=== PATIENT | male | born 1980 | race Caucasian/White ===

== ENCOUNTER → 2018-05-12 | Day surgery (SDC) | payer OTHER ==
[~2018-05-12] MED LIST: BUPIVACAINE 0.25% 30ML SDV INJ ONE; CEFTRIAXONE SOD 1 GM/NS 50 ML 50 ML IV ONE; DEXAMETHASONE SOD PHOS INJ 4 MG/ML VIAL ONE; FENTANYL CITRATE/PF 100MCG/2 ML INJ ONE; FISH OIL PO; KETOROLAC TROMETHAMINE 30 MG/ML VIAL ONE; LIDOCAINE HCL 2% LOCAL INJ 5 ML SDV VIAL INJ ONE; MIDAZOLAM HCL 2 MG/2 ML VIAL ONE; MULTIVITAMINS1 EAC8 PO; ONDANSETRON HCL INJ 2MG/ML 2ML 2 MG/ML VIAL ONE; PROPOFOL IV EMULSION 10 MG/ML 20 ML VIAL ONE; SEVOFLURANE INHAL SOLN 250 ML PEN BTL ONE; VITAMIN C PO; VITAMIN D PO; ZESTRIL20 MG PO
[2018-05-12 11:45] VITALS: BP 130/87
--- NOTE | 2018-05-13 20:06 | Operative Report ---
DATE OF PROCEDURE: 05/12/2018 SURGEON: Marcelo Conti MD PREOPERATIVE DIAGNOSIS: Fecundity POSTOPERATIVE DIAGNOSIS: Fecundity OPERATIVE PROCEDURE PERFORMED: Bilateral segmental vasectomy ANESTHESIA: General. ESTIMATED BLOOD LOSS: Minimal. INDICATION: Mr. Luis Piedra is a 38-year-old gentleman, who desires permanent sterilization. He now presents for definitive surgical management of his problem. PROCEDURE IN DETAIL: The patient was brought into the operating room, placed in the supine position. After initiation of general anesthesia, he was prepped and draped in the usual fashion. The vas was palpable through the scrotum and after local infiltration with 0.25% Marcaine, a small incision was made in this area. The vas was then carefully dissected from its surrounding structures, clipped proximally and distally and then a section approximately 1 cm in length was removed between the clips. The clipped ends were then fulgurated with the electrocautery device and the vas was allowed to retract back into the scrotum. The skin was closed with [id number] chromic suture. Similar procedure was performed on the contralateral side. Again, the vasal segment was isolated from its surrounding structures, clipped proximally and distally and 1 cm section removed between the clips. Again, the cut edges were fulgurated using electrocautery device and the skin closed with a [id number] chromic suture. The vasal segments were then sent to Pathology for microscopic analysis. Telfa and sterile fluffs were placed in the scrotum, anesthesia was reversed and the patient was transferred to the bed and taken to the postanesthesia care unit in good condition. Of note, the needle and instrument counts were correct at the conclusion of the case. Marcelo Conti MD HLW/MODL /[id number]
== END | disposition home or self-care (01) ==
LOC: OR 09:48
PROVIDERS: ATTEND Urology
DX: Z30.2 Encounter for sterilization (principal)
CPT/HCPCS: 55250; 88302; 93005; J0696; J1100; J1885; J2001; J2250; J2405; J2704